=== PATIENT | male | born 1970 | race Two or more races ===

== ENCOUNTER 2024-10-13 11:52 | Inpatient (IN) | payer OTHER ==
[2024-10-13 12:13] VITALS: BMI 18.9
[2024-10-13] MEDS ORDERED: DOCUSATE SODIUM 100 MG CAPSULE (FP) PO PRN (13:03)
[2024-10-13] MEDS ORDERED: LOPERAMIDE HCL 2 MG CAPSULE PO PRN (13:03)
[2024-10-13] MEDS ORDERED: NICOTINE POLACRILEX 2 MG GUM BUC PRN (13:03)
[2024-10-13] MEDS ORDERED: NALOXONE (NARCAN) HCL 4 MG/0.1 ML SPRAY NS PRN (13:03)
[2024-10-13] MEDS ORDERED: MAG HYDROX/AL HYDROX/SIMETH 30 ML UNIT-DOSE CUP PO PRN (13:03)
[2024-10-13] MEDS ORDERED: P-EPHED 60MG/TRIPROLIDI 2.5MG TABLET PO PRN (13:03)
[2024-10-13] MEDS ORDERED: NICOTINE POLACRILEX 2 MG LOZENGE BC PRN (13:03)
[2024-10-13] MEDS ORDERED: guaiFENesin 600 MG TABLET.ER (FP) PO PRN (13:03)
[2024-10-13] MEDS ORDERED: BENZOCAINE/MENTHOL (CHLORASEPTIC ) LOZENGE MM PRN (13:03)
[2024-10-13] MEDS ORDERED: BENZONATATE 200 MG CAPSULE PO PRN (13:03)
[2024-10-13] MEDS ORDERED: MAGNESIUM HYDROX 2400MG/30ML ORAL SUSPENSION 30 ML CUP PO PRN (13:03)
[2024-10-13] MEDS ORDERED: hydrOXYzine PAMOATE 25 MG CAPSULE (FP) PO PRN (13:03)
[2024-10-13] MEDS ORDERED: POLYETHYLENE GLYCOL (HEALTHYLAX) 3350 17 GM PACKET PO PRN (13:03)
[2024-10-13] MEDS: IBUPROFEN 600 MG TABLET (FP) PO PRN (14:31)
[2024-10-13] MEDS: AMOXICILLIN 500 MG CAPSULE (FP) PO SCH (14:40)
[2024-10-13] MEDS ORDERED: TUBERCULIN PPD 5 TU/0.1ML VIAL ID ONE (19:42)
[2024-10-13] MEDS: THIAMINE 100 MG TABLET PO SCH (21:15)
[2024-10-13] MEDS: MELATONIN 5 MG TABLETS PO SCH (21:15)
[2024-10-14] MEDS: PRENATAL VITAMINS W/ FOLIC ACID TABLET (FP) PO SCH (09:14)
[2024-10-14] MEDS: ACETAMINOPHEN 325 MG TABLET (FP) PO PRN (09:14)
[2024-10-14 11:08] LABS: HEMATOCRIT 39.4 % (35.4-49); HEMOGLOBIN 12.5 GM/dL (11.7-16.9); MCHC 31.7 g/dl (32.0-35.9); MEAN CELL VOLUME 88.3 fl (80-96); MEAN PLT VOLUME 8.7 fl (7.5-11.1); PLATELET COUNT 240 10^3/uL (134-434); RBC 4.46 M/mm3 (4.00-5.60); RDW 16.1 % (11.9-15.9); WHITE BLOOD COUNT 6.5 K/mm3 (4.0-10.0)
[2024-10-14 11:36] LABS: CHLORIDE 107 mmol/L (98-107); POTASSIUM 4.2 mmol/L (3.5-5.1); SODIUM 139 mmol/L (136-145)
[2024-10-14 11:40] LABS: ANION GAP 6 mmol/L (4-13); BLOOD UREA NITROGEN 11.7 mg/dL (7-18); CALCIUM 8.7 mg/dL (8.5-10.1); CO2 26 mmol/L (21-32)
[2024-10-14 11:41] LABS: GLUCOSE,RANDOM 113 mg/dL (74-106)
[2024-10-14 11:43] LABS: CREATININE 0.7 mg/dL (0.55-1.3); SGOT/AST 20 U/L (15-37); SGPT/ALT 24 U/L (13-61)
[2024-10-14 11:44] LABS: BILIRUBIN,TOTAL 0.6 mg/dL (0.2-1); TOT PROT 6.9 g/dl (6.4-8.2)
[2024-10-14 11:46] LABS: ALK PHOS 93 U/L (45-117)
[2024-10-14] MEDS: FLU VACCINE (FLULAVAL) PF 45 MCG/0.5 ML SYRINGE 2024-2025 IM ONE (12:42)
[2024-10-14] MEDS: PNEUMOC 20-VAL CONJ-DIP CRM/PF 0.5 ML SYRINGE IM ONE (12:45)
[2024-10-14] MEDS: hydrOXYzine PAMOATE 25 MG CAPSULE (FP) PO SCH (21:13)
[2024-10-15] MEDS: IBUPROFEN 400 MG TABLET (FP) PO PRN (10:27)
[2024-10-16] MEDS: BICTEGRAV/EMTRICIT/TENOFOV (BIKTARVY) 50-200-25 MG TABLET PO SCH (16:07)
[2024-10-17 09:26] LABS: URINE APPEARANCE CLEAR; URINE BILIRUBIN NEGATIVE (NEGATIVE); URINE COLOR YELLOW; URINE GLUCOSE (UA) NEGATIVE (NEGATIVE); URINE KETONE NEGATIVE (NEGATIVE); URINE LEUK ESTERASE NEGATIVE (NEGATIVE); URINE NITRITE NEGATIVE (NEGATIVE); URINE PROTEIN NEGATIVE (NEGATIVE); URINE UROBILINOGEN 0.2 mg/dL (0.2-1.0)
[2024-10-21] MEDS: LIDOCAINE 5% TOPICAL PATCH TP SCH (11:35)
[2024-10-21] MEDS: GABAPENTIN 300 MG CAPSULE PO SCH (13:51)
[2024-10-21] MEDS: BACLOFEN 10 MG TABLET (FP) PO SCH (13:51)
[2024-10-21] MEDS: IBUPROFEN 600 MG TABLET (FP) PO PRN (21:14)
[2024-10-21] MEDS: LIDOCAINE PATCH REMOVAL MC SCH (21:15)
[2024-10-23] MEDS: LIDOCAINE 5% TOPICAL PATCH TP SCH (14:58)
[2024-10-23] MEDS: LIDOCAINE PATCH REMOVAL MC SCH (21:31)
[2024-10-26] MEDS ORDERED: OXYMETAZOLINE 0.05% NASAL SOLUTION 15 ML BOTTLE NS PRN (15:13)
[2024-10-26] MEDS ORDERED: BENZONATATE 200 MG CAPSULE PO PRN (15:14)
[2024-10-26] MEDS: BACLOFEN 10 MG TABLET (FP) PO SCH (21:28)
[2024-10-26] MEDS: guaiFENesin 600 MG TABLET.ER (FP) PO SCH (21:29)
[2024-10-27 06:42] VITALS: RESP 16
[2024-10-30 06:43] VITALS: BP 99/67; PULSE 71; TEMP 97.1
== END 2024-10-30 09:36 | disposition home or self-care (01) | DRG 772 ==
LOC: YASAS 11:52 → Y3E 14:07
PROVIDERS: ADMIT Psychiatry & Neurology Pain Medicine; ATTEND Psychiatry & Neurology Pain Medicine
PROC: HZ42ZZZ Group Counseling for Substance Abuse Treatment, Cognitive-Behavioral (ICD-10-PCS; principal; 2024-10-13)
DX: F14.20 Cocaine dependence, uncomplicated (principal); F10.20 Alcohol dependence, uncomplicated; F17.290 Nicotine dependence, other tobacco product, uncomplicated; Z21 Asymptomatic human immunodeficiency virus [HIV] infection status; L84 Corns and callosities; J06.9 Acute upper respiratory infection, unspecified; M54.50 Low back pain, unspecified; R63.4 Abnormal weight loss; Z68.1 Body mass index [BMI] 19.9 or less, adult; Z59.02 Unsheltered homelessness
CPT/HCPCS: 0241U-QW; 36415; 73130-TC-LT-FY; 80053; 80305; 80307; 81003; 82962; 85027; 86593; 86780; 87811; 90656; 90677; 93005; 93010; G0008; G0009; J0475